=== PATIENT | female | born 1975 | race Caucasian/White ===

== ENCOUNTER 2018-08-12 01:07 | Emergency (ER) | payer MEDICAID, OTHER ==
[~2018-08-12] VITALS: Ht 162.6 cm; Wt 81.8 kg
[~2018-08-12 01:07] MED LIST: NO HOME MEDS
[2018-08-12] MEDS ORDERED: ondansetron/PF 4mg/2ml inj IV ONE (01:25)
[2018-08-12] MEDS ORDERED: morphine 4 MG/ML inj SYRINge IV PRN (01:25)
[2018-08-12] MEDS ORDERED: normal saline 1000ML IV soln IVB ONE (01:25)
[2018-08-12 02:02] LABS: BASOPHILS # (AUTO) 0.1 X10'3 (0-0.2); BASOPHILS % (AUTO) 0.9 % (0-1); EOSINOPHILS # (AUTO) 0.3 X10'3 (0-0.9); EOSINOPHILS % (AUTO) 3.9 % (0-6); HEMATOCRIT 35.6 % (35.0-45.0); LYMPHOCYTES # (AUTO) 2.3 X10'3 (1.1-4.8); MEAN CORPUSCULAR HEMOGLOBIN 31.3 PG (27.0-31.0); MEAN CORPUSCULAR HGB CONC 33.6 g/dL (33.0-36.5); MEAN PLATELET VOLUME 10.7 FL (7.4-10.4); MONOCYTES # (AUTO) 0.8 X10'3 (0-0.9); NEUTROPHILS # (AUTO) 4.5 X10'3 (1.8-7.7); NEUTROPHILS % (AUTO) 56.2 % (42-75); PLATELET COUNT 188 X10'3 (140-440); RED BLOOD COUNT 3.83 X10'6 (4.20-5.60); RED CELL DISTRIBUTION WIDTH 13.9 % (11.5-14.5)
[2018-08-12 02:16] LABS: URINE HCG NEGATIVE (NEG)
[2018-08-12 02:18] LABS: CLARITY,URINE SLIGHTLY CLOUDY (Clear); COLOR,URINE YELLOW (Yellow); GLUCOSE, URINE NEGATIVE (Neg); KETONES,URINE NEGATIVE (Neg); LEUKOCYTE ESTERASE ,URINE NEGATIVE (Neg); NITRITES, URINE NEGATIVE (Neg); OCCULT BLOOD,URINE SMALL (Neg); PH,URINE 5.5 (4.8-8.0); PROTEIN,URINE NEGATIVE (Neg); UROBILINOGEN,URINE 0.2 E.U/dL (0.2-1.0)
[2018-08-12 02:19] LABS: UA COLLECTION TYPE CLN CATCH MIDSTREAM
[2018-08-12 02:19] LABS: ALANINE AMINOTRANSFERASE 43 U/L (12-78); ALBUMIN 3.7 G/DL (3.4-5.0); ALBUMIN/GLOBULIN RATIO 1.1 (1.1-1.5); ALKALINE PHOSPHATASE 58 IU/L (46-116); ANION GAP 9 (8-16); ASPARTATE AMINO TRANSFERASE 19 U/L (10-37); BILIRUBIN,TOTAL 0.2 MG/DL (0.1-1.0); BLOOD UREA NITROGEN 19 MG/DL (7-18); BUN/CREATININE RATIO 24.1 (6.6-38.0); CALCIUM 9.4 MG/DL (8.5-10.1); CHLORIDE 102 MMOL/L (99-107); CREATININE 0.79 MG/DL (0.40-0.90); GLUCOSE 105 MG/DL (70-104); LIPASE 290 U/L (73-393); POTASSIUM 3.7 MMOL/L (3.5-5.1); SODIUM 139 MMOL/L (135-145); TOTAL CARBON DIOXIDE 28.3 MMOL/L (24-32); eGFR 80 ML/MIN
[2018-08-12 02:39] LABS: MUCUS STRANDS MODERATE /LPF (Neg); SQUAMOUS EPITHELIAL CELL,UR MANY /LPF (FEW)
[2018-08-12 02:40] LABS: BACTERIA,URINE 3+ /HPF (Neg); RBC,URINE 0-2 /HPF (0-2)
[2018-08-12] MEDS ORDERED: SUCR1TAB34 PO (03:13)
[2018-08-12] MEDS ORDERED: PANT-47 PO (03:13)
[2018-08-12] MEDS ORDERED: ACET-3067 PO (03:13)
[2018-08-12 03:24] VITALS: BP 123/74
== END 2018-08-12 03:28 | disposition home or self-care (01) ==
LOC: ER 01:08
DX: R10.13 Epigastric pain (principal); Z90.49 Acquired absence of other specified parts of digestive tract; Z79.899 Other long term (current) drug therapy
CPT/HCPCS: 36415; 74176; 80053; 81001; 81025; 83690; 85025; 96374; 96375; 99284; J2270; J2405; J7030

== ENCOUNTER 2019-02-26 02:53 | Emergency (ER) | payer OTHER ==
[~2019-02-26] VITALS: Ht 162.6 cm; Wt 81.8 kg
[~2019-02-26 02:53] MED LIST changes: +PANT-47 PO; +SUCR1TAB34 PO
[2019-02-26] MEDS ORDERED: diphenhydrAMINE 25mg capsule PO ONE (03:05)
[2019-02-26] MEDS ORDERED: methylPREDNISolone sod succ 125mg/2ml vial IM ONE (03:05)
[2019-02-26 03:35] VITALS: BP 139/85
[2019-02-26] MEDS ORDERED: PRED20TA PO (03:37)
== END 2019-02-26 03:56 | disposition home or self-care (01) ==
LOC: ER 02:54
DX: T78.40XA Allergy, unspecified, initial encounter (principal); R07.89 Other chest pain; R22.0 Localized swelling, mass and lump, head; R07.0 Pain in throat; Z90.49 Acquired absence of other specified parts of digestive tract; Z79.899 Other long term (current) drug therapy; X58.XXXA Exposure to other specified factors, initial encounter
CPT/HCPCS: 93005; 96372; 99283; J2930; Q0163

== ENCOUNTER 2019-07-22 16:05 | Emergency (ER) | payer OTHER ==
[~2019-07-22] VITALS: Ht 162.6 cm; Wt 36.4 kg
[2019-07-22 16:19] VITALS: BP 140/85
[2019-07-22] MEDS ORDERED: ketorolac trometh inj. 60 MG/2 ML VIAL IM ONE (17:05)
[2019-07-22] MEDS: LIDOcaine 5% patch TP ONE ×2 (17:20→17:40)
[2019-07-22] MEDS ORDERED: CYCL-1 PO (17:26)
== END 2019-07-22 17:41 | disposition home or self-care (01) ==
LOC: ER 16:05
DX: M54.2 Cervicalgia (principal); M62.838 Other muscle spasm; Z90.49 Acquired absence of other specified parts of digestive tract; Z79.899 Other long term (current) drug therapy; V49.88XA Car occupant (driver) (passenger) injured in other specified transport accidents, initial encounter; Y93.89 Activity, other specified; Y92.413 State road as the place of occurrence of the external cause; Y99.9 Unspecified external cause status
CPT/HCPCS: 96372; 99283; J1885

== ENCOUNTER 2020-01-20 15:01 | Emergency (ER) | payer OTHER ==
[~2020-01-20] VITALS: Ht 162.6 cm; Wt 82.0 kg
[~2020-01-20 15:01] MED LIST changes: +CYCL-1 PO
[2020-01-20] MEDS ORDERED: normal saline 1000ML IV soln IVB ONE (15:15)
[2020-01-20 15:42] LABS: BASOPHILS # (AUTO) 0.1 X10'3 (0-0.2); BASOPHILS % (AUTO) 1.1 % (0-1); EOSINOPHILS # (AUTO) 0.2 X10'3 (0-0.9); EOSINOPHILS % (AUTO) 3.3 % (0-6); HEMATOCRIT 39.4 % (35.0-45.0); HEMOGLOBIN 13.2 g/dl (12.0-16.0); LYMPHOCYTES # (AUTO) 1.8 X10'3 (1.1-4.8); LYMPHOCYTES % (AUTO) 26.3 % (21-51); MEAN CORPUSCULAR HEMOGLOBIN 31.3 PG (27.0-31.0); MEAN CORPUSCULAR HGB CONC 33.6 g/dL (33.0-36.5); MEAN CORPUSCULAR VOLUME 93.1 FL (78-98); MEAN PLATELET VOLUME 9.4 FL (7.4-10.4); MONOCYTES # (AUTO) 0.6 X10'3 (0-0.9); MONOCYTES % (AUTO) 8.2 % (2-12); NEUTROPHILS # (AUTO) 4.3 X10'3 (1.8-7.7); NEUTROPHILS % (AUTO) 61.1 % (42-75); PLATELET COUNT 191 X10'3 (140-440); RED BLOOD COUNT 4.23 X10'6 (4.20-5.60); RED CELL DISTRIBUTION WIDTH 14.8 % (11.5-14.5)
[2020-01-20 15:57] LABS: ALANINE AMINOTRANSFERASE 50 U/L (12-78); ALBUMIN 3.7 G/DL (3.4-5.0); ALKALINE PHOSPHATASE 65 IU/L (46-116); ANION GAP 8 (8-16); ASPARTATE AMINO TRANSFERASE 30 U/L (10-37); BILIRUBIN,TOTAL 0.4 MG/DL (0.1-1.0); BLOOD UREA NITROGEN 11 MG/DL (7-18); BUN/CREATININE RATIO 14.3 (6.6-38.0); CALCIUM 9.1 MG/DL (8.5-10.1); CHLORIDE 104 MMOL/L (99-107); CREATININE 0.77 MG/DL (0.40-0.90); GLUCOSE 126 MG/DL (70-104); POTASSIUM 3.6 MMOL/L (3.5-5.1); SODIUM 137 MMOL/L (135-145); TOTAL PROTEIN 7.4 G/DL (6.4-8.2); eGFR 82 ML/MIN
[2020-01-20 16:37] LABS: URINE HCG NEGATIVE (NEG)
[2020-01-20 16:39] LABS: CLARITY,URINE SLIGHTLY CLOUDY (Clear); COLOR,URINE YELLOW (Yellow); GLUCOSE, URINE NEGATIVE (Neg); KETONES,URINE NEGATIVE (Neg); LEUKOCYTE ESTERASE ,URINE LARGE (Neg); NITRITES, URINE NEGATIVE (Neg); OCCULT BLOOD,URINE LARGE (Neg); PH,URINE 6.5 (4.8-8.0); PROTEIN,URINE NEGATIVE (Neg); UROBILINOGEN,URINE 0.2 E.U/dL (0.2-1.0)
[2020-01-20 16:40] LABS: UA COLLECTION TYPE CLN CATCH MIDSTREAM
[2020-01-20 16:45] LABS: BACTERIA,URINE 3+ /HPF (Neg); SQUAMOUS EPITHELIAL CELL,UR MANY /LPF (FEW); WBC,URINE TNTC /HPF (0-4)
--- NOTE | 2020-01-20 16:45 | NUR ---
REJECTED URINE FOR CULTURE
[2020-01-20 16:46] LABS: MUCUS STRANDS FEW /LPF (Neg)
[2020-01-20 16:55] VITALS: BP 158/96
== END 2020-01-20 16:50 | disposition home or self-care (01) ==
LOC: ER 15:01 → EEVIPCON 15:01 → ER 16:50
DX: R42 Dizziness and giddiness (principal); Z86.2 Personal history of diseases of the blood and blood-forming organs and certain disorders involving the immune mechanism; Z90.89 Acquired absence of other organs; Z79.899 Other long term (current) drug therapy
CPT/HCPCS: 36415; 80053; 81001; 81025; 85025; 93005; 96360; 99284; J7030

== ENCOUNTER 2020-01-28 06:20 | Emergency (ER) | payer BC, OTHER ==
[~2020-01-28] VITALS: Ht 162.6 cm; Wt 87.0 kg
[2020-01-28] MEDS ORDERED: penicillin G benzathine 1.2 million unit/2ml syringe IM ONE (06:45)
[2020-01-28] MEDS ORDERED: acetaminophen 325mg tablet PO ONE (06:45)
[2020-01-28 07:09] VITALS: BP 166/96
== END 2020-01-28 07:09 | disposition home or self-care (01) ==
LOC: ER 06:20
DX: J02.0 Streptococcal pharyngitis (principal); R11.10 Vomiting, unspecified; Z90.49 Acquired absence of other specified parts of digestive tract; Z79.899 Other long term (current) drug therapy
CPT/HCPCS: 96372; 99283; J0561

== ENCOUNTER 2020-07-13 22:21 | Emergency (ER) | payer BC ==
[~2020-07-13] VITALS: Ht 162.6 cm; Wt 77.3 kg
[2020-07-13 23:25] LABS: BASOPHILS # (AUTO) 0.1 X10'3 (0-0.2); BASOPHILS % (AUTO) 1.4 % (0-1); EOSINOPHILS # (AUTO) 0.2 X10'3 (0-0.9); EOSINOPHILS % (AUTO) 1.8 % (0-6); HEMATOCRIT 38.7 % (35.0-45.0); HEMOGLOBIN 13.1 g/dl (12.0-16.0); LYMPHOCYTES # (AUTO) 2.3 X10'3 (1.1-4.8); LYMPHOCYTES % (AUTO) 27.1 % (21-51); MEAN CORPUSCULAR HEMOGLOBIN 32.7 PG (27.0-31.0); MEAN CORPUSCULAR HGB CONC 33.8 g/dL (33.0-36.5); MEAN CORPUSCULAR VOLUME 96.8 FL (78-98); MEAN PLATELET VOLUME 10.7 FL (7.4-10.4); MONOCYTES # (AUTO) 0.8 X10'3 (0-0.9); MONOCYTES % (AUTO) 9.5 % (2-12); NEUTROPHILS % (AUTO) 60.2 % (42-75); PLATELET COUNT 151 X10'3 (140-440); RED CELL DISTRIBUTION WIDTH 14.7 % (11.5-14.5); WHITE BLOOD COUNT 8.4 X10'3 (4.5-11.0)
[2020-07-13 23:38] LABS: ALANINE AMINOTRANSFERASE 39 U/L (12-78); ALBUMIN 3.8 G/DL (3.4-5.0); ALBUMIN/GLOBULIN RATIO 1.2 (1.1-1.5); ALKALINE PHOSPHATASE 51 IU/L (46-116); ANION GAP 10 (8-16); ASPARTATE AMINO TRANSFERASE 18 U/L (10-37); BILIRUBIN,TOTAL 0.2 MG/DL (0.1-1.0); BLOOD UREA NITROGEN 13 MG/DL (7-18); BUN/CREATININE RATIO 19.1 (6.6-38.0); CHLORIDE 106 MMOL/L (99-107); CREATININE 0.68 MG/DL (0.40-0.90); GLUCOSE 115 MG/DL (70-104); LIPASE 394 U/L (73-393); POTASSIUM 3.6 MMOL/L (3.5-5.1); SODIUM 142 MMOL/L (135-145); TOTAL CARBON DIOXIDE 25.9 MMOL/L (24-32); eGFR > 90 ML/MIN
[2020-07-13] MEDS ORDERED: ketorolac trometh inj. 60 MG/2 ML VIAL IM ONE (23:55)
[2020-07-13] MEDS ORDERED: ondansetron 4mg rapidly disintigrating tab PO ONE (23:55)
[2020-07-13] MEDS ORDERED: acetaminophen 325mg tablet PO ONE (23:55)
[2020-07-14 00:28] VITALS: BP 111/65
[2020-07-14 00:28] LABS: URINE HCG NEGATIVE (NEG)
[2020-07-14 00:32] LABS: CLARITY,URINE CLEAR (Clear); COLOR,URINE YELLOW (Yellow); GLUCOSE, URINE NEGATIVE (Neg); KETONES,URINE NEGATIVE (Neg); LEUKOCYTE ESTERASE ,URINE NEGATIVE (Neg); NITRITES, URINE NEGATIVE (Neg); OCCULT BLOOD,URINE SMALL (Neg); PH,URINE 7.5 (4.8-8.0); PROTEIN,URINE NEGATIVE (Neg); UROBILINOGEN,URINE 0.2 E.U/dL (0.2-1.0)
[2020-07-14 00:44] LABS: UA COLLECTION TYPE VOIDED
[2020-07-14 00:45] LABS: BACTERIA,URINE FEW /HPF (Neg); RBC,URINE 0-2 /HPF (0-2); SQUAMOUS EPITHELIAL CELL,UR NONE SEEN /LPF (FEW); WBC,URINE NONE SEEN /HPF (0-4)
[2020-07-14] MEDS ORDERED: HYDR-3965 PO (01:04)
[2020-07-14] MEDS ORDERED: ONDA4TAB6 PO (01:04)
== END 2020-07-14 01:25 | disposition home or self-care (01) ==
LOC: EEVIPCON 22:21 → ER 22:21
DX: R10.12 Left upper quadrant pain (principal); Z86.2 Personal history of diseases of the blood and blood-forming organs and certain disorders involving the immune mechanism; Z90.89 Acquired absence of other organs; Z79.899 Other long term (current) drug therapy
CPT/HCPCS: 80053; 81001; 81025; 83690; 85025; 96372; 99283; J1885

== ENCOUNTER 2020-09-18 12:46 | Emergency (ER) | payer BC ==
[~2020-09-18] VITALS: Ht 162.6 cm; Wt 79.5 kg
[~2020-09-18 12:46] MED LIST changes: +ONDA4TAB6 PO
[2020-09-18 12:58] VITALS: BP 157/85
[2020-09-18] MEDS ORDERED: ketorolac tromethamine 15mg/ml inj. IM ONE (15:25)
[2020-09-18] MEDS ORDERED: CYCL-1 PO ×2 (15:29→15:33)
== END 2020-09-18 15:48 | disposition home or self-care (01) ==
LOC: EEVIPCON 12:46 → ER 12:46
DX: S39.012A Strain of muscle, fascia and tendon of lower back, initial encounter (principal); Z90.89 Acquired absence of other organs; Z79.899 Other long term (current) drug therapy; X58.XXXA Exposure to other specified factors, initial encounter; Y93.89 Activity, other specified; Y92.89 Other specified places as the place of occurrence of the external cause; Y99.8 Other external cause status
CPT/HCPCS: 96372; 99283; J1885